=== PATIENT | male | born 1950 | race Caucasian/White ===

== ENCOUNTER → 2016-11-09 | Outpatient (CLI) | payer MEDICARE, OTHER | LOC: LAB.O 08:56 | PROVIDERS: ATTEND Internal Medicine Gastroenterology | DX: K76.0 Fatty (change of) liver, not elsewhere classified (principal); B16.9 Acute hepatitis B without delta-agent and without hepatic coma; B19.20 Unspecified viral hepatitis C without hepatic coma ==

== ENCOUNTER → 2017-07-07 | Outpatient (CLI) | payer MEDICARE, OTHER ==
--- NOTE | 2017-07-07 12:48 | US ---
EXAM DESCRIPTION: Thyroid CLINICAL HISTORY: 67 years Male, NONTOXIC SINGLE THYROID NODULE COMPARISON: None. TECHNIQUE: Real-time sonographic images of the thyroid are obtained. FINDINGS: Right lobe of the thyroid measures 4.9 x 1.8 x 1.9 cm. The left lobe measures 4.2 x 1.5 x 1.4 cm. The isthmus measures 4 mm in thickness. The thyroid is diffusely heterogeneous in echogenicity. There is a well-circumscribed hypoechoic solid nodule in the lower pole on the right lobe that is wider than tall and contains no suspicious calcifications measuring 9 x 10 x 7 mm. IMPRESSION: Heterogeneous thyroid suggest multinodular goiter versus chronic thyroiditis. There is a 10 mm solid nodule in the lower pole right lobe thyroid without suspicious imaging characteristics. Electronically signed by: João Lepe MD 07/07/2017 12:47 PM CDT
== END | disposition home or self-care (01) ==
LOC: US 08:05
PROVIDERS: ATTEND Family Medicine
DX: E04.1 Nontoxic single thyroid nodule (principal)

== ENCOUNTER → 2018-01-04 | Outpatient (CLI) | payer MEDICARE, OTHER | LOC: GMAB 10:58 | PROVIDERS: ATTEND Family Medicine | DX: E03.9 Hypothyroidism, unspecified (principal); Z12.5 Encounter for screening for malignant neoplasm of prostate | CPT/HCPCS: 84439; 84443; 84481; G0103 ==

== ENCOUNTER → 2018-08-23 | Outpatient (CLI) | payer MEDICARE, OTHER ==
--- NOTE | 2018-08-23 10:43 | US ---
US THYROID CLINICAL STATEMENT: THYROID NODULE. COMPARISON: None FINDINGS: Size right thyroid lobe: 4.4 x 1.8 x 1.7 cm Size left thyroid lobe: 4.1 x 2.0 x 1.7 cm Size isthmus: 0.25 cm Estimated total number of nodules greater than or equal to 1 cm: None. Extremely heterogeneous appearance of both thyroid lobes and isthmus, similar to spongiform nodules, but no definite nodules were seen. Multiple bilateral small cysts which were not measured. No distinct solid mass. No large calcifications or parenchymal edema. No abnormal vascularity. Soft tissues around the thyroid glands show no distinct cystic or solid mass. No large calcifications or parenchymal edema. No abnormal vascularity. IMPRESSION: 1. Normal size of the bilateral thyroid lobes, very heterogeneous in appearance, with spongiform parenchyma. No definite nodules. Multiple bilateral small cysts. 2. Soft tissues around the thyroid gland are unremarkable. 3. If thyroid function is clinically abnormal, consider radionuclide thyroid imaging. Electronically signed by: Kushal Holloway MD 08/23/2018 10:42 AM CDT
== END ==
LOC: US 09:00
PROVIDERS: ATTEND Family Medicine
DX: E04.1 Nontoxic single thyroid nodule (principal)

== ENCOUNTER → 2018-09-04 | Outpatient (CLI) | payer MEDICARE, OTHER | LOC: GMAE 12:03 | PROVIDERS: ATTEND Family Medicine | DX: E03.9 Hypothyroidism, unspecified (principal) ==

== ENCOUNTER → 2018-11-10 | Outpatient (CLI) | payer MEDICARE, OTHER | LOC: GMAE 10:31 | PROVIDERS: ATTEND Family Medicine | DX: E04.2 Nontoxic multinodular goiter (principal); E03.9 Hypothyroidism, unspecified ==

== ENCOUNTER → 2019-02-08 | Outpatient (CLI) | payer MEDICARE, OTHER | LOC: GMAE 10:42 | PROVIDERS: ATTEND Family Medicine | DX: E03.9 Hypothyroidism, unspecified (principal); I10 Essential (primary) hypertension; Z12.5 Encounter for screening for malignant neoplasm of prostate | CPT/HCPCS: 84439; 84443; 84481; G0103 ==

== ENCOUNTER → 2019-02-14 | Outpatient (CLI) | payer MEDICARE, OTHER ==
--- NOTE | 2019-02-14 17:33 | US ---
EXAM DESCRIPTION: Aorta: Ultrasound. CLINICAL HISTORY: SCREENING COMPARISON: None. TECHNIQUE: Transcutaneous scanning: Two-dimensional and Doppler modes. FINDINGS: Abdominal aorta diameter - Proximal: 2.5 x 2.5 x 1.9 cm. Mid: 2.0 x 2.0 x 1.9 cm. Distal: 2.1 x 2.0 cm. Common Iliac was not well seen. Other: Negative.. IMPRESSION: Abdominal aorta ultrasound showing no evidence of aneurysm. Electronically signed by: Kushal Holloawy MD 02/14/2019 5:29 PM CDT
== END ==
LOC: US 08:00
PROVIDERS: ATTEND Family Medicine
DX: Z13.89 Encounter for screening for other disorder (principal)

== ENCOUNTER → 2019-10-02 | Outpatient (CLI) | payer MEDICARE, OTHER | LOC: GMAE 10:36 | PROVIDERS: ATTEND Family Medicine | DX: E03.9 Hypothyroidism, unspecified (principal) ==

== ENCOUNTER → 2019-10-05 | Outpatient (CLI) | payer MEDICARE, OTHER ==
--- NOTE | 2019-10-05 12:26 | US ---
EXAM DESCRIPTION: Renal Arteries: Ultrasound. CLINICAL HISTORY: ESSENTIAL PRIMARY HYPERTENSION COMPARISON: Two-dimensional ultrasound evaluation of the bilateral kidneys on the same visit. TECHNIQUE: Transcutaneous scanning: Grayscale mode. Doppler systolic and diastolic measurements of the abdominal aorta, renal arteries, intra renal arteries, and renal veins. FINDINGS: The right kidney not measured; normal cortical echogenicity and normal cortical thickness with no hydronephrosis or large calcifications. Lobulated contour of the kidney with no perinephric fluid. Proximal ureter not visualized. The left kidney not measured; normal cortical echogenicity and normal cortical thickness, with no hydronephrosis or large calcifications. Lobulated contour of the kidney with no perinephric fluid. Proximal ureter not visualized. Distal ureters not visualized bilaterally. Urinary bladder was not visualized. Vessel diameter (cm): Aorta-Proximal: Not measured Mid: 1.8 cm Distal: Not measured ARNIE- not measured. PSV (cm/sec): Aorta: 63 Right renal artery: 125 Left renal artery: 63 EDV (cm/sec): Right renal artery: 30 Left renal artery: 21 Renal veins: Unremarkable. IVC: Normal caliber. Intrarenal RI's: Superior segmental Right: 0.65 Left: 0.61. Inferior segmental Right: 0.65 Left: 0.59 Renal Aortic Ratio: Right RAR = RRA PSV/Aortic PSV = 125 /63= approximately 2.0. Left RAR = LRA PSV/Aortic PSV = 63/63 = 1.0. End Diastolic Ratio: Right EDR = RRA EDV/RRA PSV = 30/125 = 0.24. Left EDR = LRA EDV/LRA PSV = 21/63= 0.33. Other: None. IMPRESSION: 1. Normal cortical thickness and echogenicity with lobulated capsule bilaterally. No renal length measurements were taken. 2. Bilateral renal aortic ratios indicate no evidence of significant renal artery stenosis. 3. Bilateral renal end-diastolic ratios and parenchymal resistive indices measurements indicating no evidence of significant renovascular disease. The right end diastolic ratio is low normal. Electronically signed by: Kushal Holloway MD 10/05/2019 12:24 PM [employer]
== END ==
LOC: US 08:00
PROVIDERS: ATTEND Family Medicine
DX: I10 Essential (primary) hypertension (principal)

== ENCOUNTER → 2020-02-11 | Outpatient (CLI) | payer MEDICARE, OTHER | LOC: GMAE 11:31 | PROVIDERS: ATTEND Family Medicine | DX: Z12.5 Encounter for screening for malignant neoplasm of prostate (principal); E03.9 Hypothyroidism, unspecified; I10 Essential (primary) hypertension | CPT/HCPCS: 84439; 84443; 84481; G0103 ==